=== PATIENT | male | born 1950 | race Caucasian/White ===

== ENCOUNTER 2018-12-26 06:33 | Day surgery (SDC) | payer MEDICARE, MEDICAID ==
[~2018-12-26] VITALS: Ht 170.2 cm; Wt 82.4 kg
[2018-12-26] VITALS (10 sets, daily range): BP systolic 146–165; BP diastolic 47–84
[~2018-12-26 06:33] MED LIST: ALBU18HF2 IH; AMOX500C2 PO; BUPR150T8 PO; CARI350T PO; CLON-527 PO; COR3.125T PO; DULO-31 PO; EPIN0.3P17 IM; FENO145T38 PO; INSU100V23 SQ; LISI-600 PO; MOME17SP NS; NITR4.1S2 TL; NORCO10T PO; OMEP-84 PO; PHEN118S9 PO; PIOG45TA PO; PREG75CA30 PO; PROM25TA14 PO; SIMV20TA5 PO; SUMA25TA35 PO; ZET10T PO; ZOLP10TA5 PO
[2018-12-26] MEDS ORDERED: normal saline 1,000 ML IV SCH (06:50)
[2018-12-26] MEDS ORDERED: diphenhydrAMINE 25mg capsule PO PRN (06:50)
[2018-12-26] MEDS ORDERED: ALFU10TA10 PO (07:33)
[2018-12-26] MEDS ORDERED: ATOR80TA PO (07:33)
[2018-12-26] MEDS ORDERED: LANTUS SQ (07:33)
[2018-12-26] MEDS ORDERED: LANS15CA18 PO (07:33)
[2018-12-26] MEDS ORDERED: GLUC1KIT IM (07:33)
[2018-12-26] MEDS ORDERED: DULO-31 PO (07:33)
[2018-12-26] MEDS ORDERED: ARIP2TAB37 PO (07:33)
[2018-12-26] MEDS ORDERED: proCHLORperazine 10 MG/2 ml inj ONE (07:42)
[2018-12-26] MEDS ORDERED: iohexol 350MG/ML 100ml bottle IV ONE (07:42)
[2018-12-26] MEDS ORDERED: fentaNYL/PF 50MCG/1 ML 2ML syringe ONE (07:42)
[2018-12-26] MEDS ORDERED: LIDOcaine 1% (10mg/ml)w/preservative injection 20ml MDV ONE (07:42)
[2018-12-26] MEDS ORDERED: midazolam 2 mg/2 ml injection ONE ×2 (07:42→09:22)
[2018-12-26] MEDS ORDERED: iohexol 350 MG/ML 50ML vial IV ONE (07:42)
[2018-12-26] MEDS ORDERED: diphenhydrAMINE 50 mg/ml inj ONE (08:07)
[2018-12-26] MEDS ORDERED: heparin 1,000unit/ml 10ml vial 10 ML ONE (08:39)
[2018-12-26] MEDS ORDERED: iohexol 350 MG/1 ML 200ml bottle ONE (08:40)
[2018-12-26] MEDS ORDERED: nitroGLYCERIN-Tridil 50MG/D5W 250 ML IV ONE (09:06)
[2018-12-26] MEDS ORDERED: aspirin 81mg tab.chew ONE (09:48)
[2018-12-26] MEDS ORDERED: clopidogrel 300mg tablet ONE (09:48)
[2018-12-26 10:34] LABS: EOSINOPHILS # (AUTO) 0.1 X10'3 (0-0.9); EOSINOPHILS % (AUTO) 3.3 % (0-6); HEMATOCRIT 33.2 % (42.0-52.0); HEMOGLOBIN 11.7 g/dl (14.0-17.9); LYMPHOCYTES # (AUTO) 0.9 X10'3 (1.1-4.8); MEAN CORPUSCULAR HEMOGLOBIN 30.5 PG (27.0-31.0); MEAN CORPUSCULAR HGB CONC 35.2 g/dL (33.0-36.5); MEAN CORPUSCULAR VOLUME 86.6 FL (78-98); MEAN PLATELET VOLUME 9.1 FL (7.4-10.4); MONOCYTES # (AUTO) 0.3 X10'3 (0-0.9); MONOCYTES % (AUTO) 9.8 % (2-12); NEUTROPHILS # (AUTO) 2.2 X10'3 (1.8-7.7); NEUTROPHILS % (AUTO) 60.9 % (42-75); PLATELET COUNT 156 X10'3 (140-440); RED BLOOD COUNT 3.83 X10'6 (4.70-6.10); RED CELL DISTRIBUTION WIDTH 13.4 % (11.5-14.5); WHITE BLOOD COUNT 3.6 X10'3 (4.5-11.0)
[2018-12-26 10:42] LABS: ALBUMIN 3.3 G/DL (3.4-5.0); ANION GAP 5 (8-16); BLOOD UREA NITROGEN 16 MG/DL (7-18); BUN/CREATININE RATIO 18.2 (5.4-32.0); CALCIUM 8.7 MG/DL (8.5-10.1); CHLORIDE 105 MMOL/L (99-107); CREATININE 0.88 MG/DL (0.60-1.10); GLUCOSE 134 MG/DL (70-104); MAGNESIUM 1.4 MG/DL (1.5-2.4); POTASSIUM 4.2 MMOL/L (3.5-5.1); SODIUM 136 MMOL/L (135-145); TOTAL CARBON DIOXIDE 26.2 MMOL/L (24-32); eGFR 86 ML/MIN
[2018-12-26 10:45] LABS: PROTHROMBIN TIME 12.2 SECONDS (9.0-12.0)
[2018-12-26 10:46] LABS: INR 1.2 INR
== END 2018-12-26 14:10 | disposition home or self-care (01) ==
LOC: SSTAY O 06:33
PROVIDERS: ATTEND Internal Medicine Cardiovascular Disease
DX: I25.119 Atherosclerotic heart disease of native coronary artery with unspecified angina pectoris (principal); E78.5 Hyperlipidemia, unspecified; I10 Essential (primary) hypertension; E11.9 Type 2 diabetes mellitus without complications; I25.2 Old myocardial infarction; I70.219 Atherosclerosis of native arteries of extremities with intermittent claudication, unspecified extremity; E78.00 Pure hypercholesterolemia, unspecified; G47.30 Sleep apnea, unspecified; J44.9 Chronic obstructive pulmonary disease, unspecified; Z98.890 Other specified postprocedural states; Z88.8 Allergy status to other drugs, medicaments and biological substances; Z87.891 Personal history of nicotine dependence; Z95.5 Presence of coronary angioplasty implant and graft
CPT/HCPCS: 36415; 80048; 83735; 85025; 85610; 93005; 93458; 99152; 99153; A6257; C1874; C9600; J0780; J1200; J1644; J2001; J2250; J3010; J7030; Q0163; Q9967; A4620; C1725; C1760; C1769; C1894; J3490

== ENCOUNTER → 2019-04-23 | Day surgery (SDC) | payer MEDICARE, MEDICAID ==
[~2019-04-23] MED LIST changes: +ALFU10TA10 PO; -AMOX500C2 PO; +ARIP2TAB37 PO; +ATOR80TA PO; -BUPR150T8 PO; -CARI350T PO; -CLON-527 PO; +GLUC1KIT IM; -INSU100V23 SQ; +LANS15CA18 PO; +LANTUS SQ; +LORA0.5T PO; -NORCO10T PO; -OMEP-84 PO; -PHEN118S9 PO; -PIOG45TA PO; -PREG75CA30 PO; -SIMV20TA5 PO; -SUMA25TA35 PO; -ZET10T PO; -ZOLP10TA5 PO
== END | disposition home or self-care (01) ==
LOC: RAD 09:25
PROVIDERS: ATTEND Family Medicine
DX: R11.0 Nausea (principal)
CPT/HCPCS: 78264; A9541

== ENCOUNTER 2019-05-16 03:38 | Emergency (ER) | payer MEDICARE, MEDICAID ==
[~2019-05-16] VITALS: Ht 167.6 cm; Wt 95.0 kg
[~2019-05-16 03:38] MED LIST changes: -LORA0.5T PO
[2019-05-16] MEDS ORDERED: LORA0.5T PO (03:54)
[2019-05-16 04:05] VITALS: BP 160/63
== END 2019-05-16 04:07 | disposition home or self-care (01) ==
LOC: ER 03:38
DX: F41.9 Anxiety disorder, unspecified (principal); F41.0 Panic disorder [episodic paroxysmal anxiety]; E11.9 Type 2 diabetes mellitus without complications; Z88.6 Allergy status to analgesic agent; Z88.8 Allergy status to other drugs, medicaments and biological substances; Z79.4 Long term (current) use of insulin; Z79.899 Other long term (current) drug therapy
CPT/HCPCS: 93005; 99284

== ENCOUNTER 2019-11-03 01:26 | Emergency (ER) | payer MEDICARE, MEDICAID ==
[~2019-11-03] VITALS: Ht 172.7 cm; Wt 78.3 kg
[2019-11-03 02:46] VITALS: BP 142/59
[2019-11-03 03:11] LABS: BASOPHILS % (AUTO) 0.8 % (0-1); EOSINOPHILS # (AUTO) 0.2 X10'3 (0-0.9); EOSINOPHILS % (AUTO) 5.7 % (0-6); HEMATOCRIT 32.4 % (42.0-52.0); HEMOGLOBIN 11.4 g/dl (14.0-17.9); LYMPHOCYTES # (AUTO) 0.9 X10'3 (1.1-4.8); LYMPHOCYTES % (AUTO) 21.8 % (21-51); MEAN CORPUSCULAR HEMOGLOBIN 29.8 PG (27.0-31.0); MEAN CORPUSCULAR HGB CONC 35.3 g/dL (33.0-36.5); MEAN CORPUSCULAR VOLUME 84.5 FL (78-98); MEAN PLATELET VOLUME 8.3 FL (7.4-10.4); MONOCYTES # (AUTO) 0.4 X10'3 (0-0.9); MONOCYTES % (AUTO) 9.8 % (2-12); NEUTROPHILS # (AUTO) 2.5 X10'3 (1.8-7.7); NEUTROPHILS % (AUTO) 61.9 % (42-75); PLATELET COUNT 192 X10'3 (140-440); RED BLOOD COUNT 3.83 X10'6 (4.70-6.10); RED CELL DISTRIBUTION WIDTH 13.8 % (11.5-14.5)
[2019-11-03 03:24] LABS: CLARITY,URINE CLEAR (Clear); COLOR,URINE YELLOW (Yellow); GLUCOSE, URINE NEGATIVE (Neg); KETONES,URINE NEGATIVE (Neg); LEUKOCYTE ESTERASE ,URINE NEGATIVE (Neg); NITRITES, URINE NEGATIVE (Neg); OCCULT BLOOD,URINE NEGATIVE (Neg); PH,URINE 6.5 (4.8-8.0); PROTEIN,URINE NEGATIVE (Neg); UROBILINOGEN,URINE 0.2 E.U/dL (0.2-1.0)
[2019-11-03 03:26] LABS: ALANINE AMINOTRANSFERASE 26 U/L (12-78); ALBUMIN/GLOBULIN RATIO 1.3 (1.1-1.5); ALKALINE PHOSPHATASE 45 IU/L (46-116); ANION GAP 10 (8-16); ASPARTATE AMINO TRANSFERASE 29 U/L (10-37); BILIRUBIN,TOTAL 0.7 MG/DL (0.1-1.0); BLOOD UREA NITROGEN 11 MG/DL (7-18); BUN/CREATININE RATIO 11.6 (5.4-32.0); CALCIUM 9.2 MG/DL (8.5-10.1); CHLORIDE 97 MMOL/L (99-107); CREATININE 0.95 MG/DL (0.60-1.10); GLUCOSE 111 MG/DL (70-104); LIPASE 80 U/L (73-393); POTASSIUM 4.2 MMOL/L (3.5-5.1); SODIUM 133 MMOL/L (135-145); TOTAL CARBON DIOXIDE 26.3 MMOL/L (24-32); TOTAL PROTEIN 7.2 G/DL (6.4-8.2); eGFR 78 ML/MIN
[2019-11-03 03:26] LABS: UA COLLECTION TYPE CLN CATCH MIDSTREAM
[2019-11-03] MEDS ORDERED: MAGN296S68 PO (03:37)
[2019-11-03] MEDS ORDERED: BISA10SU60 RC (03:37)
== END 2019-11-03 03:50 | disposition home or self-care (01) ==
LOC: ER 01:27
DX: K59.00 Constipation, unspecified (principal); E11.9 Type 2 diabetes mellitus without complications; F41.9 Anxiety disorder, unspecified; Z88.6 Allergy status to analgesic agent; Z88.5 Allergy status to narcotic agent; Z79.4 Long term (current) use of insulin; Z79.899 Other long term (current) drug therapy
CPT/HCPCS: 36415; 74176; 80053; 81003; 83690; 85025; 99284

== ENCOUNTER 2021-04-02 06:31 | Day surgery (SDC) | payer MEDICARE, MEDICAID ==
[~2021-04-02] VITALS: Ht 170.2 cm; Wt 81.2 kg
[2021-04-02] VITALS (10 sets, daily range): BP systolic 137–157; BP diastolic 49–67
[~2021-04-02 06:31] MED LIST changes: +BISA10SU60 RC; -LISI-600 PO; +LISI20TA28 PO; +MAGN296S68 PO
[2021-04-02] MEDS ORDERED: normal saline 1,000 ML IV SCH (07:05)
[2021-04-02] MEDS ORDERED: diphenhydrAMINE 25mg capsule PO PRN (07:05)
[2021-04-02] MEDS ORDERED: INSU100I31 (07:13)
[2021-04-02] MEDS ORDERED: FLO0.4C PO (07:13)
[2021-04-02] MEDS ORDERED: LORA-269 PO (07:13)
[2021-04-02] MEDS ORDERED: NITR0.4T51 SL (07:13)
[2021-04-02] MEDS ORDERED: ZET10T PO (07:13)
[2021-04-02] MEDS ORDERED: CREON (07:13)
[2021-04-02] MEDS ORDERED: AMLO2.5T2 PO (07:13)
[2021-04-02] MEDS ORDERED: GABA-530 PO (07:13)
[2021-04-02] MEDS ORDERED: PRUC1TAB PO (07:13)
[2021-04-02] MEDS ORDERED: NORT25CA PO (07:13)
[2021-04-02] MEDS ORDERED: CLOP75TA15 PO (07:13)
[2021-04-02] MEDS ORDERED: DOCU100C40 PO (07:13)
[2021-04-02] MEDS ORDERED: PANT40TA54 PO (07:13)
[2021-04-02] MEDS ORDERED: fenofibrate PO (07:13)
[2021-04-02 07:28] LABS: BASOPHILS % (AUTO) 1.1 % (0-1); EOSINOPHILS # (AUTO) 0.2 X10'3 (0-0.9); EOSINOPHILS % (AUTO) 4.8 % (0-6); HEMATOCRIT 35.7 % (42.0-52.0); HEMOGLOBIN 12.1 g/dl (14.0-17.9); LYMPHOCYTES # (AUTO) 0.8 X10'3 (1.1-4.8); LYMPHOCYTES % (AUTO) 18.2 % (21-51); MEAN CORPUSCULAR HEMOGLOBIN 30.2 PG (27.0-31.0); MEAN CORPUSCULAR HGB CONC 33.8 g/dL (33.0-36.5); MEAN CORPUSCULAR VOLUME 89.2 FL (78-98); MEAN PLATELET VOLUME 8.2 FL (7.4-10.4); MONOCYTES # (AUTO) 0.4 X10'3 (0-0.9); NEUTROPHILS # (AUTO) 2.9 X10'3 (1.8-7.7); NEUTROPHILS % (AUTO) 66.9 % (42-75); PLATELET COUNT 207 X10'3 (140-440); RED BLOOD COUNT 4.01 X10'6 (4.70-6.10); RED CELL DISTRIBUTION WIDTH 14.1 % (11.5-14.5); WHITE BLOOD COUNT 4.3 X10'3 (4.5-11.0)
[2021-04-02 07:51] LABS: ALBUMIN 4.1 G/DL (3.4-5.0); ANION GAP 7 (8-16); BLOOD UREA NITROGEN 14 MG/DL (7-18); BUN/CREATININE RATIO 11.9 (5.4-32.0); CALCIUM 8.8 MG/DL (8.5-10.1); CHLORIDE 103 MMOL/L (99-107); CREATININE 1.18 MG/DL (0.60-1.10); GLUCOSE 139 MG/DL (70-104); MAGNESIUM 1.6 MG/DL (1.5-2.4); SODIUM 140 MMOL/L (135-145); TOTAL CARBON DIOXIDE 29.6 MMOL/L (24-32); eGFR 61 ML/MIN
[2021-04-02] MEDS ORDERED: LIDOcaine 1% (10mg/ml)w/preservative injection 20ml MDV ONE (08:40)
[2021-04-02] MEDS ORDERED: iohexol 350 MG/ML 50ML vial IV ONE (08:40)
[2021-04-02] MEDS ORDERED: iohexol 350MG/ML 100ml bottle IV ONE ×2 (08:40→09:25)
[2021-04-02] MEDS ORDERED: midazolam 1 mg/ML 2ml injection ONE (08:40)
[2021-04-02] MEDS ORDERED: fentaNYL/PF 50MCG/1 ML 2ML syringe ONE (08:40)
[2021-04-02] MEDS ORDERED: heparin 1,000unit/ml 10ml vial 10 ML ONE (09:22)
[2021-04-02] MEDS ORDERED: aspirin 81mg tab.chew ONE (09:50)
[2021-04-02] MEDS ORDERED: clopidogrel 300mg tablet ONE (09:50)
[2021-04-02] MEDS ORDERED: acetaminophen 325mg tablet PO PRN (10:20)
[2021-04-02] MEDS ORDERED: proCHLORperazine 10 MG/2 ml inj IV PRN (10:20)
[2021-04-02] MEDS ORDERED: HYDROcodone/acetaminophen 5mg/325mg tablet PO PRN (10:20)
[2021-04-02] MEDS ORDERED: HYDROcodone/acetaminophen 10/325mg tab PO PRN (10:20)
[2021-04-02] MEDS ORDERED: ondansetron/PF 4mg/2ml inj IV PRN (10:20)
== END 2021-04-02 13:30 | disposition home or self-care (01) ==
LOC: SSTAY O 06:31
PROVIDERS: ATTEND Internal Medicine Cardiovascular Disease
DX: R94.39 Abnormal result of other cardiovascular function study (principal); I25.118 Atherosclerotic heart disease of native coronary artery with other forms of angina pectoris; I10 Essential (primary) hypertension; E78.00 Pure hypercholesterolemia, unspecified; I25.2 Old myocardial infarction; E11.43 Type 2 diabetes mellitus with diabetic autonomic (poly)neuropathy; K31.84 Gastroparesis; G47.30 Sleep apnea, unspecified; J44.9 Chronic obstructive pulmonary disease, unspecified; Z95.5 Presence of coronary angioplasty implant and graft; Z79.01 Long term (current) use of anticoagulants; Z79.82 Long term (current) use of aspirin; Z79.899 Other long term (current) drug therapy; Z98.890 Other specified postprocedural states; Z95.820 Peripheral vascular angioplasty status with implants and grafts; Z88.8 Allergy status to other drugs, medicaments and biological substances; Z87.891 Personal history of nicotine dependence
CPT/HCPCS: 36415; 80048; 82948; 83735; 85025; 85610; 93458; 99152; 99153; C1725; C1751; C1760; C1769; C1874; C1894; C9600; J1644; J2001; J2250; J3010; J7030; Q0163; Q9967; A4620; A6258

== ENCOUNTER 2021-05-21 07:00 | Day surgery (SDC) | payer MEDICARE, MEDICAID ==
[~2021-05-21] VITALS: Ht 170.2 cm; Wt 83.9 kg
[~2021-05-21 07:00] MED LIST changes: -ALBU18HF2 IH; -ALFU10TA10 PO; +AMLO2.5T2 PO; -BISA10SU60 RC; +CLOP75TA15 PO; +CREON PO; +DOCU100C40 PO; -EPIN0.3P17 IM; -FENO145T38 PO; +FLO0.4C PO; +GABA-530 PO; -GLUC1KIT IM; +INSU100I31; -LANTUS SQ; +LORA-269 PO; -MAGN296S68 PO; -MOME17SP NS; +NITR0.4T51 SL; -NITR4.1S2 TL; +NORT25CA PO; +PANT40TA54 PO; -PROM25TA14 PO; +PRUC1TAB PO; +ZET10T PO; +fenofibrate PO
[2021-05-21] MEDS ORDERED: sodium bicarbonate (8.4%) inj. 150 MEQ in dextrose 5%-water 1,000 ML IV SCH (07:25)
[2021-05-21] MEDS ORDERED: ASPI-1264 PO (07:49)
[2021-05-21 08:23] VITALS: BP 107/45
[2021-05-21] MEDS ORDERED: iohexol 350 MG/ML 50ML vial IV ONE (09:31)
[2021-05-21] MEDS ORDERED: iohexol 350MG/ML 100ml bottle IV ONE (09:32)
== END 2021-05-21 14:00 | disposition home or self-care (01) ==
LOC: SSTAY O 07:00
PROVIDERS: ATTEND Internal Medicine Cardiovascular Disease
DX: I70.213 Atherosclerosis of native arteries of extremities with intermittent claudication, bilateral legs (principal); N28.1 Cyst of kidney, acquired; N40.0 Benign prostatic hyperplasia without lower urinary tract symptoms; K57.30 Diverticulosis of large intestine without perforation or abscess without bleeding; Z90.49 Acquired absence of other specified parts of digestive tract; Z79.899 Other long term (current) drug therapy
CPT/HCPCS: 75635; 82948; Q9967

== ENCOUNTER 2021-06-07 06:49 | Day surgery (SDC) | payer MEDICARE, MEDICAID ==
[~2021-06-07] VITALS: Ht 165.1 cm; Wt 85.1 kg
[2021-06-07] VITALS (12 sets, daily range): BP systolic 133–163; BP diastolic 48–71
[~2021-06-07 06:49] MED LIST changes: -ARIP2TAB37 PO; +ASPI-1264 PO; -DOCU100C40 PO; -LANS15CA18 PO; -PRUC1TAB PO
[2021-06-07] MEDS ORDERED: diphenhydrAMINE 25mg capsule PO PRN (07:15)
[2021-06-07] MEDS ORDERED: normal saline 1,000 ML IV SCH (07:15)
[2021-06-07 08:01] LABS: BASOPHILS # (AUTO) 0.1 X10'3 (0-0.2); BASOPHILS % (AUTO) 1.2 % (0-1); EOSINOPHILS # (AUTO) 0.3 X10'3 (0-0.9); EOSINOPHILS % (AUTO) 6.4 % (0-6); HEMATOCRIT 33.6 % (42.0-52.0); HEMOGLOBIN 11.5 g/dl (14.0-17.9); LYMPHOCYTES % (AUTO) 22.9 % (21-51); MEAN CORPUSCULAR HEMOGLOBIN 30.1 PG (27.0-31.0); MEAN CORPUSCULAR HGB CONC 34.1 g/dL (33.0-36.5); MEAN CORPUSCULAR VOLUME 88.2 FL (78-98); MEAN PLATELET VOLUME 8.6 FL (7.4-10.4); MONOCYTES # (AUTO) 0.4 X10'3 (0-0.9); MONOCYTES % (AUTO) 9.8 % (2-12); NEUTROPHILS # (AUTO) 2.6 X10'3 (1.8-7.7); NEUTROPHILS % (AUTO) 59.7 % (42-75); PLATELET COUNT 201 X10'3 (140-440); RED BLOOD COUNT 3.81 X10'6 (4.70-6.10); WHITE BLOOD COUNT 4.4 X10'3 (4.5-11.0)
[2021-06-07 08:09] LABS: ALBUMIN 3.7 G/DL (3.4-5.0); ANION GAP 5 (8-16); BLOOD UREA NITROGEN 21 MG/DL (7-18); BUN/CREATININE RATIO 16.7 (5.4-32.0); CALCIUM 8.9 MG/DL (8.5-10.1); CHLORIDE 106 MMOL/L (99-107); CREATININE 1.26 MG/DL (0.60-1.10); GLUCOSE 152 MG/DL (70-104); MAGNESIUM 1.9 MG/DL (1.5-2.4); SODIUM 141 MMOL/L (135-145); TOTAL CARBON DIOXIDE 30.1 MMOL/L (24-32); eGFR 56 ML/MIN
[2021-06-07] MEDS ORDERED: ISOS30TA84 PO (08:18)
[2021-06-07] MEDS ORDERED: EPIN0.3P3 IM (08:18)
[2021-06-07] MEDS ORDERED: ALFU10TA PO (08:27)
[2021-06-07] MEDS ORDERED: DONE5TAB7 PO (08:27)
[2021-06-07] MEDS ORDERED: CYCL1DRO EACHEYE (08:27)
[2021-06-07] MEDS ORDERED: midazolam 1 mg/ML 2ml injection ONE (08:32)
[2021-06-07] MEDS ORDERED: heparin 1,000unit/ml 10ml vial 10 ML ONE (08:32)
[2021-06-07] MEDS ORDERED: fentaNYL/PF 50MCG/1 ML 2ML syringe ONE (08:32)
[2021-06-07] MEDS ORDERED: LIDOcaine 1% (10mg/ml)w/preservative injection 20ml MDV ONE (08:32)
[2021-06-07] MEDS ORDERED: iohexol 350 MG/1 ML 200ml bottle ONE (08:33)
[2021-06-07] MEDS ORDERED: iohexol 350MG/ML 100ml bottle IV ONE (10:22)
[2021-06-07] MEDS ORDERED: HYDROcodone/acetaminophen 10/325mg tab PO PRN (11:15)
[2021-06-07] MEDS ORDERED: ondansetron/PF 4mg/2ml inj IV PRN (11:15)
[2021-06-07] MEDS ORDERED: proCHLORperazine 10 MG/2 ml inj IV PRN (11:15)
[2021-06-07] MEDS ORDERED: acetaminophen 325mg tablet PO PRN (11:15)
[2021-06-07] MEDS ORDERED: HYDROcodone/acetaminophen 5mg/325mg tablet PO PRN (11:15)
[2021-06-07] MEDS ORDERED: OXAZEpam 15mg capsule PO PRN (11:15)
--- NOTE | 2021-06-07 13:46 | NUR ---
Dr Alvarado called for bleeding/oozing at right groin when femstop gradually removed. femstop pressure replaced immediately without hematoma or further bleeding. Md to floor to visualize, orders to leave in place longer until 1630 with go home time at 5. Pt unable to urinate laying flat secondary to bph. Orders to st cath, pt tolerated well.
--- NOTE | 2021-06-07 15:27 | NUR ---
Pt having back pain, new and not relieved by pain meds. Dr Alvarado made aware. No obvious further bleeding at groin site. Vascular study in progress per Dr Alvarado to r/o retroperitoneal bleed.
== END 2021-06-07 18:10 | disposition home or self-care (01) ==
LOC: SSTAY O 06:49
PROVIDERS: ATTEND Internal Medicine Cardiovascular Disease
DX: E11.51 Type 2 diabetes mellitus with diabetic peripheral angiopathy without gangrene (principal); I70.212 Atherosclerosis of native arteries of extremities with intermittent claudication, left leg; I25.10 Atherosclerotic heart disease of native coronary artery without angina pectoris; I25.2 Old myocardial infarction; E11.43 Type 2 diabetes mellitus with diabetic autonomic (poly)neuropathy; K31.84 Gastroparesis; J44.9 Chronic obstructive pulmonary disease, unspecified; G47.30 Sleep apnea, unspecified; Z98.890 Other specified postprocedural states; Z79.899 Other long term (current) drug therapy; Z79.82 Long term (current) use of aspirin; Z95.5 Presence of coronary angioplasty implant and graft; Z90.49 Acquired absence of other specified parts of digestive tract; Z87.891 Personal history of nicotine dependence; Z88.8 Allergy status to other drugs, medicaments and biological substances
CPT/HCPCS: 36415; 37221; 75716; 80048; 83735; 85025; 85610; 93005; 93926; 99152; 99153; C1725; C1760; C1769; C1876; C1894; J1644; J2001; J2250; J3010; J7030; Q0163; Q9967; 36140; 36246; A4620; A6258

== ENCOUNTER 2022-04-29 22:06 | Emergency (ER) | payer MEDICARE, MEDICAID ==
[~2022-04-29] VITALS: Ht 170.2 cm; Wt 66.0 kg
[~2022-04-29 22:06] MED LIST changes: +ALFU10TA PO; +CYCL1DRO EACHEYE; +DONE5TAB7 PO; +EPIN0.3P3 IM; +ISOS30TA84 PO
[2022-04-29] MEDS ORDERED: ondansetron/PF 4mg/2ml inj IV ONE (22:40)
[2022-04-29] MEDS ORDERED: normal saline 1000ML IV soln IVB ONE (22:40)
[2022-04-29 23:17] LABS: BASOPHILS # (AUTO) 0.1 X10'3 (0-0.2); BASOPHILS % (AUTO) 1.4 % (0-1); EOSINOPHILS # (AUTO) 0.1 X10'3 (0-0.9); EOSINOPHILS % (AUTO) 2.3 % (0-6); HEMATOCRIT 33.9 % (42.0-52.0); HEMOGLOBIN 11.6 g/dl (14.0-17.9); LYMPHOCYTES # (AUTO) 1.1 X10'3 (1.1-4.8); LYMPHOCYTES % (AUTO) 22.7 % (21-51); MEAN CORPUSCULAR HEMOGLOBIN 29.5 PG (27.0-31.0); MEAN CORPUSCULAR HGB CONC 34.4 g/dL (33.0-36.5); MEAN CORPUSCULAR VOLUME 85.7 FL (78-98); MEAN PLATELET VOLUME 8.9 FL (7.4-10.4); MONOCYTES # (AUTO) 0.5 X10'3 (0-0.9); MONOCYTES % (AUTO) 10.8 % (2-12); NEUTROPHILS # (AUTO) 3.2 X10'3 (1.8-7.7); NEUTROPHILS % (AUTO) 62.8 % (42-75); PLATELET COUNT 284 X10'3 (140-440); RED BLOOD COUNT 3.95 X10'6 (4.70-6.10); RED CELL DISTRIBUTION WIDTH 15.1 % (11.5-14.5)
[2022-04-29 23:32] LABS: ALANINE AMINOTRANSFERASE 17 U/L (12-78); ALBUMIN 3.1 G/DL (3.4-5.0); ALKALINE PHOSPHATASE 59 IU/L (46-116); ANION GAP 10 (8-16); ASPARTATE AMINO TRANSFERASE 18 U/L (10-37); BILIRUBIN,TOTAL 0.5 MG/DL (0.1-1.0); BLOOD UREA NITROGEN 16 MG/DL (7-18); BUN/CREATININE RATIO 14.7 (5.4-32.0); CALCIUM 8.5 MG/DL (8.5-10.1); CHLORIDE 99 MMOL/L (99-107); CREATININE 1.09 MG/DL (0.60-1.10); GLUCOSE 123 MG/DL (70-104); LIPASE 415 U/L (73-393); MAGNESIUM 1.4 MG/DL (1.5-2.4); POTASSIUM 4.2 MMOL/L (3.5-5.1); SODIUM 136 MMOL/L (135-145); TOTAL CARBON DIOXIDE 26.8 MMOL/L (24-32); TOTAL PROTEIN 6.2 G/DL (6.4-8.2); eGFR 66 ML/MIN
[2022-04-30] MEDS ORDERED: iohexol 350MG/ML 100ml bottle IV ONE ×2 (00:08→00:10)
[2022-04-30 01:13] LABS: CLARITY,URINE CLEAR (Clear); COLOR,URINE YELLOW (Yellow); GLUCOSE, URINE NEGATIVE (Neg); KETONES,URINE 15 mg/dl (Neg); LEUKOCYTE ESTERASE ,URINE TRACE (Neg); NITRITES, URINE NEGATIVE (Neg); OCCULT BLOOD,URINE NEGATIVE (Neg); PROTEIN,URINE NEGATIVE (Neg); UROBILINOGEN,URINE 0.2 E.U/dL (0.2-1.0)
[2022-04-30 01:20] LABS: UA COLLECTION TYPE CLN CATCH MIDSTREAM
[2022-04-30 01:23] LABS: BACTERIA,URINE NONE SEEN /HPF (Neg); MUCUS STRANDS NONE SEEN /LPF (Neg); RBC,URINE 0-2 /HPF (0-2); SQUAMOUS EPITHELIAL CELL,UR NONE SEEN /LPF (FEW); WBC,URINE 0-4 /HPF (0-4)
[2022-04-30] MEDS ORDERED: LORazepam 1 MG tablet PO ONE (02:05)
[2022-04-30 04:00] VITALS: BP 138/70
== END 2022-04-30 05:50 | disposition home or self-care (01) ==
LOC: ER 22:06
DX: E11.43 Type 2 diabetes mellitus with diabetic autonomic (poly)neuropathy (principal); K31.84 Gastroparesis; R10.84 Generalized abdominal pain; F41.9 Anxiety disorder, unspecified; Z88.8 Allergy status to other drugs, medicaments and biological substances; Z79.82 Long term (current) use of aspirin; Z79.899 Other long term (current) drug therapy
CPT/HCPCS: 36415; 74177; 80053; 81001; 83690; 83735; 85025; 87088; 96374; 99285; J2405; J3490; J7030; Q9967

== ENCOUNTER 2023-05-16 10:47 | Emergency (ER) | payer MEDICARE, MEDICAID ==
[~2023-05-16] VITALS: Ht 170.2 cm; Wt 90.0 kg
[2023-05-16 10:56] VITALS: BP 124/39; PULSE 56; RESP 18; TEMP 97.6; O2SAT 95
== END 2023-05-16 12:24 | disposition left against medical advice (07) ==
LOC: ER 10:48
DX: M54.59 Other low back pain (principal); Z53.21 Procedure and treatment not carried out due to patient leaving prior to being seen by health care provider
CPT/HCPCS: 99281

== ENCOUNTER 2024-03-19 18:22 | Emergency (ER) | payer MEDICARE, OTHER ==
[~2024-03-19] VITALS: Ht 170.2 cm; Wt 69.5 kg
[~2024-03-19 18:22] MED LIST changes: +EZET10TA7 PO; -ZET10T PO
[2024-03-19 18:27] VITALS: TEMP 98.8
[2024-03-19 18:50] LABS: EOSINOPHILS # (AUTO) 0.2 X10'3 (0-0.9); LYMPHOCYTES # (AUTO) 0.9 X10'3 (1.1-4.8); LYMPHOCYTES % (AUTO) 16.4 % (21-51); MONOCYTES # (AUTO) 0.4 X10'3 (0-0.9); RED CELL DISTRIBUTION WIDTH 13.5 % (11.5-14.5)
[2024-03-19 18:53] LABS: BASOPHILS % (AUTO) 0.9 % (0-1); EOSINOPHILS % (AUTO) 3.2 % (0-6); HEMATOCRIT 35.1 % (42.0-52.0); MEAN CORPUSCULAR HEMOGLOBIN 30.4 PG (27.0-31.0); MEAN CORPUSCULAR HGB CONC 34.1 g/dL (33.0-36.5); MEAN CORPUSCULAR VOLUME 89.1 FL (78-98); MEAN PLATELET VOLUME 8.8 FL (7.4-10.4); NEUTROPHILS # (AUTO) 4.1 X10'3 (1.8-7.7); NEUTROPHILS % (AUTO) 72.5 % (42-75); PLATELET COUNT 174 X10'3 (140-440); RED BLOOD COUNT 3.94 X10'6 (4.70-6.10); WHITE BLOOD COUNT 5.7 X10'3 (4.5-11.0)
[2024-03-19 21:05] LABS: ALBUMIN 3.7 G/DL (3.4-5.0); ANION GAP 12 (8-16); BLOOD UREA NITROGEN 23 MG/DL (7-18); BUN/CREATININE RATIO 17.8 (10.0-20.0); CALCIUM 9.4 MG/DL (8.5-10.1); CHLORIDE 106 MMOL/L (99-107); CREATININE 1.29 MG/DL (0.60-1.10); GLUCOSE 74 MG/DL (70-104); POTASSIUM 4.2 MMOL/L (3.5-5.1); PRO BRAIN NATRIURETIC PEPTIDE 1466 PG/ML (0-450); SODIUM 142 MMOL/L (135-145); eCRCL 46 ML/MIN; eGFR 54 ML/MIN
[2024-03-19] MEDS ORDERED: PROC-8 PO (21:33)
[2024-03-19] MEDS: proCHLORperazine 10 MG/2 ml inj IV ONE (21:40)
[2024-03-19 21:56] VITALS: BP 163/61; PULSE 57; RESP 17; O2SAT 97
== END 2024-03-19 21:50 | disposition home or self-care (01) ==
LOC: ER 18:22
DX: K31.84 Gastroparesis (principal); R53.1 Weakness; E11.9 Type 2 diabetes mellitus without complications; Z88.5 Allergy status to narcotic agent; Z88.6 Allergy status to analgesic agent
CPT/HCPCS: 36415; 71045; 80048; 83880; 84145; 84484; 85025; 93005; 96374; 99285; J0780; J7030

== ENCOUNTER 2024-05-04 20:54 | Emergency (ER) | payer MEDICARE, MEDICAID ==
[~2024-05-04] VITALS: Ht 170.2 cm; Wt 67.6 kg
[~2024-05-04 20:54] MED LIST changes: +PROC-8 PO
[2024-05-04] MEDS: normal saline 1000ML IV soln IVB ONE (23:56)
[2024-05-05] MEDS: ondansetron/PF 4mg/2ml inj IV ONE ×2 (00:32→02:14)
[2024-05-05 00:36] LABS: BASOPHILS % (AUTO) 0.7 % (0-1); EOSINOPHILS # (AUTO) 0.2 X10'3 (0-0.9); EOSINOPHILS % (AUTO) 3.2 % (0-6); HEMATOCRIT 34.2 % (42.0-52.0); HEMOGLOBIN 11.7 g/dl (14.0-17.9); LYMPHOCYTES # (AUTO) 1.3 X10'3 (1.1-4.8); LYMPHOCYTES % (AUTO) 20.1 % (21-51); MEAN CORPUSCULAR HEMOGLOBIN 30.4 PG (27.0-31.0); MEAN CORPUSCULAR HGB CONC 34.3 g/dL (33.0-36.5); MEAN CORPUSCULAR VOLUME 88.5 FL (78-98); MEAN PLATELET VOLUME 8.4 FL (7.4-10.4); MONOCYTES # (AUTO) 0.7 X10'3 (0-0.9); MONOCYTES % (AUTO) 10.3 % (2-12); NEUTROPHILS # (AUTO) 4.3 X10'3 (1.8-7.7); NEUTROPHILS % (AUTO) 65.7 % (42-75); PLATELET COUNT 250 X10'3 (140-440); RED BLOOD COUNT 3.86 X10'6 (4.70-6.10); WHITE BLOOD COUNT 6.6 X10'3 (4.5-11.0)
[2024-05-05 00:39] LABS: ALANINE AMINOTRANSFERASE 32 U/L (12-78); ALBUMIN 4.1 G/DL (3.4-5.0); ALBUMIN/GLOBULIN RATIO 1.1 (1.1-1.5); ALKALINE PHOSPHATASE 57 IU/L (46-116); ANION GAP 10 (8-16); ASPARTATE AMINO TRANSFERASE 32 U/L (10-37); BILIRUBIN,TOTAL 0.7 MG/DL (0.1-1.0); BLOOD UREA NITROGEN 29 MG/DL (7-18); BUN/CREATININE RATIO 18.8 (10.0-20.0); CALCIUM 9.7 MG/DL (8.5-10.1); CHLORIDE 97 MMOL/L (99-107); CREATININE 1.54 MG/DL (0.60-1.10); GLUCOSE 135 MG/DL (70-104); LIPASE 176 U/L (16-77); POTASSIUM 3.6 MMOL/L (3.5-5.1); SODIUM 134 MMOL/L (135-145); TOTAL CARBON DIOXIDE 27.4 MMOL/L (24-32); TOTAL PROTEIN 7.9 G/DL (6.4-8.2); eCRCL 39 ML/MIN; eGFR 44 ML/MIN
[2024-05-05] MEDS: normal saline 1000ML IV soln IVB ONE (01:27)
[2024-05-05] MEDS ORDERED: ONDA-243 PO (02:06)
[2024-05-05] MEDS ORDERED: ZOLP5TAB8 PO (02:14)
[2024-05-05] MEDS: QUEtiapine 25mg tablet PO ONE (02:28)
[2024-05-05 02:32] VITALS: BP 145/63; PULSE 97; RESP 16; TEMP 97.6; O2SAT 98
== END 2024-05-05 02:32 | disposition home or self-care (01) ==
LOC: ER 20:55
DX: E86.0 Dehydration (principal); R10.84 Generalized abdominal pain; I25.10 Atherosclerotic heart disease of native coronary artery without angina pectoris; E11.9 Type 2 diabetes mellitus without complications; F41.9 Anxiety disorder, unspecified; Z88.8 Allergy status to other drugs, medicaments and biological substances; Z79.899 Other long term (current) drug therapy; Z79.82 Long term (current) use of aspirin
CPT/HCPCS: 36415; 80053; 83690; 85025; 96361; 96374; 96376; 99284; J2405; J7030

== ENCOUNTER 2024-05-07 11:55 | Emergency (ER) | payer MEDICARE, MEDICAID ==
[~2024-05-07] VITALS: Ht 167.6 cm; Wt 65.9 kg
[~2024-05-07 11:55] MED LIST changes: +ONDA-243 PO; +ZOLP5TAB8 PO
[2024-05-07 12:54] LABS: BILIRUBIN,URINE NEGATIVE (Neg); CLARITY,URINE SLIGHTLY CLOUDY (Clear); COLOR,URINE YELLOW (Yellow); GLUCOSE, URINE NEGATIVE (Neg); KETONES,URINE TRACE mg/dl (Neg); LEUKOCYTE ESTERASE ,URINE NEGATIVE (Neg); NITRITES, URINE NEGATIVE (Neg); OCCULT BLOOD,URINE NEGATIVE (Neg); PROTEIN,URINE TRACE mg/dl (Neg); UROBILINOGEN,URINE 0.2 E.U/dL (0.2-1.0)
[2024-05-07 12:56] LABS: URINE AMPHETAMINE SCREEN NEGATIVE (Neg); URINE BARBITUATE SCREEN NEGATIVE (Neg); URINE BENZODIAZEPINES SCREEN POSITIVE (Neg); URINE CANNABINOID SCREEN POSITIVE (Neg); URINE COCAINE SCREEN NEGATIVE (Neg); URINE METHADONE SCREEN NEGATIVE (Neg); URINE OPIATE SCREEN NEGATIVE (Neg); URINE PHENCYCLIDINE SCREEN NEGATIVE (Neg)
[2024-05-07 13:17] LABS: BASOPHILS % (AUTO) 0.5 % (0-1); EOSINOPHILS # (AUTO) 0.1 X10'3 (0-0.9); EOSINOPHILS % (AUTO) 2.7 % (0-6); HEMATOCRIT 31.3 % (42.0-52.0); HEMOGLOBIN 10.7 g/dl (14.0-17.9); LYMPHOCYTES # (AUTO) 0.6 X10'3 (1.1-4.8); LYMPHOCYTES % (AUTO) 13.2 % (21-51); MEAN CORPUSCULAR HEMOGLOBIN 30.6 PG (27.0-31.0); MEAN CORPUSCULAR HGB CONC 34.2 g/dL (33.0-36.5); MEAN CORPUSCULAR VOLUME 89.5 FL (78-98); MEAN PLATELET VOLUME 8.3 FL (7.4-10.4); MONOCYTES # (AUTO) 0.5 X10'3 (0-0.9); MONOCYTES % (AUTO) 10.7 % (2-12); NEUTROPHILS # (AUTO) 3.2 X10'3 (1.8-7.7); NEUTROPHILS % (AUTO) 72.9 % (42-75); PLATELET COUNT 230 X10'3 (140-440); WHITE BLOOD COUNT 4.4 X10'3 (4.5-11.0)
[2024-05-07 13:37] LABS: ALBUMIN 3.4 G/DL (3.4-5.0); ANION GAP 5 (8-16); BLOOD UREA NITROGEN 14 MG/DL (7-18); BUN/CREATININE RATIO 10.6 (10.0-20.0); CHLORIDE 105 MMOL/L (99-107); CREATININE 1.32 MG/DL (0.60-1.10); GLUCOSE 158 MG/DL (70-104); POTASSIUM 4.1 MMOL/L (3.5-5.1); SODIUM 138 MMOL/L (135-145); THYROID STIMULATING HORMONE 1.22 ulU/ml (0.34-4.50); TOTAL CARBON DIOXIDE 28.1 MMOL/L (24-32); eCRCL 44 ML/MIN; eGFR 53 ML/MIN
[2024-05-07 13:44] LABS: UA COLLECTION TYPE CLN CATCH MIDSTREAM
[2024-05-07 13:44] LABS: ETHANOL < 10 MG/DL (<10)
[2024-05-07 13:47] LABS: BACTERIA,URINE 1+ /HPF (Neg); WBC,URINE 0-4 /HPF (0-4)
[2024-05-07 13:48] LABS: SQUAMOUS EPITHELIAL CELL,UR NONE SEEN /LPF (FEW)
[2024-05-07 13:50] LABS: RBC,URINE 0-2 /HPF (0-2)
[2024-05-07 13:51] LABS: AMORPHOUS PHOSPHATES 3+; HYALINE CASTS 0-3 /LPF (NEGATIVE)
[2024-05-07] MEDS ORDERED: FERR-106 PO (16:19)
[2024-05-07] MEDS ORDERED: SERT-434 PO (16:19)
[2024-05-07] MEDS ORDERED: ZOLP5TAB8 PO (21:46)
[2024-05-07] MEDS ORDERED: ONDA-243 PO (22:51)
[2024-05-07] MEDS: zolpidem 5mg tablet PO ONE (23:50)
[2024-05-08] MEDS: LORazepam 1 MG tablet PO ONE (03:46)
[2024-05-08] MEDS: pantoprazole 40mg Tablet.DR PO SCH (07:59)
[2024-05-08] MEDS: sertraline 50mg tablet PO SCH (08:00)
[2024-05-08] MEDS: ALFUZOSIN HCL 10 MG PO SCH (08:00)
[2024-05-08] MEDS: duloxetine 30mg CAPSULE.DR PO SCH (08:00)
[2024-05-08] MEDS: LORazepam 1 MG tablet PO SCH (08:00)
[2024-05-08] MEDS: isosorbide mononitrate 30mg tab.SR.24H PO SCH (08:01)
[2024-05-08] MEDS: clopidogrel 75mg tablet PO SCH (08:01)
[2024-05-08] MEDS: carvedilol 6.25mg tablet PO SCH (08:01)
[2024-05-08] MEDS: donepezil 5mg tablet PO SCH (08:01)
[2024-05-08] MEDS ORDERED: alfuzosin 10MG TAB.SR.24H PO SCH ×3 (08:53→08:58)
[2024-05-08 13:05] VITALS: BP 114/60; PULSE 80; RESP 16; TEMP 98.5; O2SAT 98
== END 2024-05-08 13:07 | disposition home or self-care (01) ==
LOC: ER 11:55
DX: R45.851 Suicidal ideations (principal); Z20.822 Contact with and (suspected) exposure to COVID-19; I25.10 Atherosclerotic heart disease of native coronary artery without angina pectoris; E11.9 Type 2 diabetes mellitus without complications; F41.9 Anxiety disorder, unspecified; Z88.8 Allergy status to other drugs, medicaments and biological substances; Z88.5 Allergy status to narcotic agent; Z88.6 Allergy status to analgesic agent; Z79.899 Other long term (current) drug therapy
CPT/HCPCS: 36415; 80048; 80305; 81001; 82948; 84443; 85025; 87811; 99285; G0480; 80320

== ENCOUNTER 2024-08-31 23:02 | Emergency (ER) | payer MEDICARE, MEDICAID ==
[~2024-08-31] VITALS: Ht 182.9 cm; Wt 89.9 kg
[~2024-08-31 23:02] MED LIST changes: -AMLO2.5T2 PO; -ASPI-1264 PO; -ATOR80TA PO; -CREON PO; -CYCL1DRO EACHEYE; -EPIN0.3P3 IM; -EZET10TA7 PO; -FLO0.4C PO; -GABA-530 PO; -INSU100I31; -LISI20TA28 PO; -NITR0.4T51 SL; -NORT25CA PO; -ONDA-243 PO; -PROC-8 PO; +SERT-434 PO; -ZOLP5TAB8 PO; -fenofibrate PO
[2024-09-01 00:18] LABS: BASOPHILS % (AUTO) 0.5 % (0-1); EOSINOPHILS # (AUTO) 0.1 X10'3 (0-0.9); EOSINOPHILS % (AUTO) 1.5 % (0-6); LYMPHOCYTES # (AUTO) 0.7 X10'3 (1.1-4.8); LYMPHOCYTES % (AUTO) 16.5 % (21-51); MEAN CORPUSCULAR HEMOGLOBIN 30.7 PG (27.0-31.0); MEAN CORPUSCULAR HGB CONC 34.4 g/dL (33.0-36.5); MEAN CORPUSCULAR VOLUME 89.4 FL (78-98); MEAN PLATELET VOLUME 7.9 FL (7.4-10.4); MONOCYTES # (AUTO) 0.5 X10'3 (0-0.9); MONOCYTES % (AUTO) 11.2 % (2-12); NEUTROPHILS # (AUTO) 3.2 X10'3 (1.8-7.7); NEUTROPHILS % (AUTO) 70.3 % (42-75); PLATELET COUNT 216 X10'3 (140-440); RED BLOOD COUNT 3.59 X10'6 (4.70-6.10); RED CELL DISTRIBUTION WIDTH 13.9 % (11.5-14.5); WHITE BLOOD COUNT 4.5 X10'3 (4.5-11.0)
[2024-09-01 00:39] LABS: ALBUMIN 3.6 G/DL (3.4-5.0); ANION GAP 9 (8-16); BLOOD UREA NITROGEN 8 MG/DL (7-18); BUN/CREATININE RATIO 5.5 (10.0-20.0); CHLORIDE 107 MMOL/L (99-107); CREATININE 1.45 MG/DL (0.60-1.10); ETHANOL < 10 MG/DL (<10); GLUCOSE 96 MG/DL (70-104); POTASSIUM 3.7 MMOL/L (3.5-5.1); SODIUM 142 MMOL/L (135-145); THYROID STIMULATING HORMONE 2.07 ulU/ml (0.34-4.50); TOTAL CARBON DIOXIDE 25.7 MMOL/L (24-32); eCRCL 48 ML/MIN; eGFR 47 ML/MIN
[2024-09-01 00:57] LABS: BILIRUBIN,URINE NEGATIVE (Neg); CLARITY,URINE CLEAR (Clear); COLOR,URINE YELLOW (Yellow); GLUCOSE, URINE NEGATIVE (Neg); KETONES,URINE NEGATIVE (Neg); LEUKOCYTE ESTERASE ,URINE NEGATIVE (Neg); NITRITES, URINE NEGATIVE (Neg); OCCULT BLOOD,URINE NEGATIVE (Neg); PH,URINE 8.5 (4.8-8.0); PROTEIN,URINE NEGATIVE (Neg); UROBILINOGEN,URINE 0.2 E.U/dL (0.2-1.0)
[2024-09-01] MEDS: LORazepam 2 mg/ml vial IV ONE (01:01)
[2024-09-01 01:04] LABS: UA COLLECTION TYPE VOIDED
[2024-09-01 01:23] LABS: URINE AMPHETAMINE SCREEN NEGATIVE (Neg); URINE BARBITUATE SCREEN NEGATIVE (Neg); URINE BENZODIAZEPINES SCREEN NEGATIVE (Neg); URINE CANNABINOID SCREEN POSITIVE (Neg); URINE COCAINE SCREEN NEGATIVE (Neg); URINE METHADONE SCREEN NEGATIVE (Neg); URINE OPIATE SCREEN NEGATIVE (Neg); URINE PHENCYCLIDINE SCREEN NEGATIVE (Neg)
[2024-09-01] MEDS ORDERED: WATER FOR INJECTION,STERILE 71 ML in dextrose 70%-water 179 ML IV SCH (02:30)
[2024-09-01] MEDS: dextrose 50%-water 50ml dispensing syringe IV ONE (02:43)
[2024-09-01] MEDS: dextrose 5%-normal saline 1,000 ML IV SCH (05:59)
[2024-09-01 11:36] LABS: SALICYLATE 0.3 MG/DL (4.0-20.0)
[2024-09-01 11:37] LABS: ACETAMINOPHEN < 2.0 UG/ML (10-30)
[2024-09-01] MEDS ORDERED: DONE10TA19 PO (17:16)
[2024-09-01] MEDS ORDERED: FERR325T28 PO (17:16)
[2024-09-01] MEDS ORDERED: DESV50TA20 PO (17:16)
[2024-09-01] MEDS ORDERED: ONDA-245 PO (17:16)
[2024-09-01] MEDS ORDERED: PRUC1TAB PO (17:16)
[2024-09-01] MEDS ORDERED: LORA-268 PO (17:16)
[2024-09-01] MEDS ORDERED: FENO160T PO (17:16)
[2024-09-01] MEDS ORDERED: HYDR-3927 PO (17:16)
[2024-09-01] MEDS ORDERED: UMEC62.5 PO (20:04)
[2024-09-01] MEDS ORDERED: DOCU-391 PO (20:13)
[2024-09-01] MEDS ORDERED: QUET25TA36 PO (20:22)
[2024-09-01 21:34] VITALS: PULSE 59; O2SAT 100
[2024-09-01] MEDS: proCHLORperazine 10mg tablet PO PRN (21:34)
[2024-09-01] MEDS: QUEtiapine 25mg tablet PO SCH (21:34)
[2024-09-01] MEDS: hydrOXYzine 25 MG tablet PO SCH (21:34)
[2024-09-01] MEDS: donepezil 5mg tablet PO SCH (21:35)
[2024-09-01] MEDS: LORazepam 0.5 MG tablet PO PRN (22:48)
[2024-09-01] MEDS: QUEtiapine 25mg tablet PO ONE (23:56)
[2024-09-02] MEDS: ipratropium 0.5 MG/2.5ML nebule IH SCH (03:00)
[2024-09-02] MEDS: DESVENLAFAXINE SUCCINATE 50 MG PO SCH (08:00)
[2024-09-02] MEDS: PRUCALOPRIDE SUCCINATE 1 MG PO SCH (08:00)
[2024-09-02] MEDS: NUT.TX.GLUC.INTOLER,LAC-FR,SOY (GLUCERNA) 237 ML PO SCH (08:13)
[2024-09-02] MEDS: ferrous sulfate 325mg tablet PO SCH (08:15)
[2024-09-02] MEDS: isosorbide mononitrate 30mg tab.SR.24H PO SCH (08:15)
[2024-09-02] MEDS: clopidogrel 75mg tablet PO SCH (08:15)
[2024-09-02] MEDS: fenofibrate 145mg tablet PO SCH (08:15)
[2024-09-02] MEDS: ondansetron 4mg rapidly disintigrating tab PO PRN (08:21)
[2024-09-02 09:54] VITALS: PULSE 66; RESP 16; O2SAT 96
[2024-09-02 10:03] VITALS: PULSE 72; RESP 16
[2024-09-02] MEDS: QUEtiapine 25mg tablet PO ONE (23:59)
[2024-09-03 19:36] VITALS: PULSE 68; RESP 16; O2SAT 97
[2024-09-03 19:44] VITALS: PULSE 80; RESP 16
[2024-09-03] MEDS: quetiapine 100mg tablet PO SCH (20:18)
[2024-09-04] VITALS (8 sets, daily range): PULSE 60–77; RESP 16–20; O2SAT 98–100
[2024-09-04] MEDS: loperamide 2mg capsule PO ONE (00:16)
[2024-09-04] MEDS: haloperidol lactate 5mg/ml inj IM ONE (14:06)
[2024-09-05] VITALS (7 sets, daily range): PULSE 49–95; RESP 16–18; TEMP 98; O2SAT 98
[2024-09-06 09:28] VITALS: PULSE 68; RESP 16; O2SAT 98
[2024-09-06 09:33] VITALS: PULSE 56; RESP 16
[2024-09-06 15:44] VITALS: BP 150/64
[2024-09-06 16:53] VITALS: PULSE 60; RESP 20; O2SAT 98
[2024-09-06 16:58] VITALS: PULSE 64; RESP 20
== END 2024-09-06 18:35 | disposition home or self-care (01) ==
LOC: ER 23:02 → EEVIPCON 23:02 → ER 09-06 18:35
DX: T38.3X2A Poisoning by insulin and oral hypoglycemic [antidiabetic] drugs, intentional self-harm, initial encounter (principal); R45.851 Suicidal ideations; S09.90XA Unspecified injury of head, initial encounter; Z20.822 Contact with and (suspected) exposure to COVID-19; S00.81XA Abrasion of other part of head, initial encounter; I25.10 Atherosclerotic heart disease of native coronary artery without angina pectoris; F41.9 Anxiety disorder, unspecified; E11.9 Type 2 diabetes mellitus without complications; Z88.5 Allergy status to narcotic agent; Z88.6 Allergy status to analgesic agent; Z88.8 Allergy status to other drugs, medicaments and biological substances; Z79.899 Other long term (current) drug therapy; Y92.89 Other specified places as the place of occurrence of the external cause; X58.XXXA Exposure to other specified factors, initial encounter; Y93.89 Activity, other specified; Y99.8 Other external cause status
CPT/HCPCS: 36415; 70450; 80048; 80305; 80329; 81003; 82948; 84443; 85025; 87811; 94640; 96361; 96372; 96374; 96375; 99285; G0480; J2060; J3490; J7042; Q0164; Q0177; 80320; 94760

== ENCOUNTER 2024-12-20 11:32 | Inpatient (IN) | payer MEDICARE, MEDICAID ==
[~2024-12-20] VITALS: Ht 170.2 cm; Wt 72.0 kg
[~2024-12-20 11:32] MED LIST changes: -ALFU10TA PO; -COR3.125T PO; +DESV50TA20 PO; +DOCU-391 PO; +DONE10TA19 PO; -DONE5TAB7 PO; -DULO-31 PO; +FENO160T PO; +FERR325T28 PO; +HYDR-3927 PO; +LORA-268 PO; -LORA-269 PO; +ONDA-245 PO; -PANT40TA54 PO; +PRUC1TAB PO; +QUET25TA36 PO; -SERT-434 PO; +UMEC62.5 PO
[2024-12-20 12:10] LABS: BASOPHILS % (AUTO) 0.7 % (0-1); EOSINOPHILS # (AUTO) 0.1 X10'3 (0-0.9); EOSINOPHILS % (AUTO) 2.4 % (0-6); HEMATOCRIT 35.7 % (42.0-52.0); HEMOGLOBIN 12.2 g/dl (14.0-17.9); LYMPHOCYTES % (AUTO) 21.1 % (21-51); MEAN CORPUSCULAR HEMOGLOBIN 31.6 PG (27.0-31.0); MEAN CORPUSCULAR HGB CONC 34.1 g/dL (33.0-36.5); MEAN CORPUSCULAR VOLUME 92.6 FL (78-98); MEAN PLATELET VOLUME 8.3 FL (7.4-10.4); MONOCYTES # (AUTO) 0.4 X10'3 (0-0.9); MONOCYTES % (AUTO) 8.6 % (2-12); NEUTROPHILS # (AUTO) 3.1 X10'3 (1.8-7.7); NEUTROPHILS % (AUTO) 67.2 % (42-75); PLATELET COUNT 180 X10'3 (140-440); RED BLOOD COUNT 3.86 X10'6 (4.70-6.10); RED CELL DISTRIBUTION WIDTH 13.8 % (11.5-14.5); WHITE BLOOD COUNT 4.6 X10'3 (4.5-11.0)
[2024-12-20 12:21] LABS: ALANINE AMINOTRANSFERASE 21 U/L (12-78); ALBUMIN 3.4 G/DL (3.4-5.0); ALBUMIN/GLOBULIN RATIO 1.1 (1.1-1.5); ALKALINE PHOSPHATASE 90 IU/L (46-116); ANION GAP 3 (8-16); ASPARTATE AMINO TRANSFERASE 15 U/L (10-37); BILIRUBIN,TOTAL 0.3 MG/DL (0.1-1.0); BLOOD UREA NITROGEN 14 MG/DL (7-18); BUN/CREATININE RATIO 14.6 (10.0-20.0); CALCIUM 8.9 MG/DL (8.5-10.1); CHLORIDE 104 MMOL/L (99-107); CREATININE 0.96 MG/DL (0.60-1.10); GLUCOSE 161 MG/DL (70-104); POTASSIUM 4.3 MMOL/L (3.5-5.1); SODIUM 139 MMOL/L (135-145); TOTAL CARBON DIOXIDE 32.1 MMOL/L (24-32); TOTAL PROTEIN 6.4 G/DL (6.4-8.2); eCRCL 61 ML/MIN; eGFR 76 ML/MIN
[2024-12-20 12:29] LABS: PRO BRAIN NATRIURETIC PEPTIDE 1156 PG/ML (0-450)
[2024-12-20] MEDS ORDERED: magnesium sulf-water 4G/100mL 100 ML IV PRN (14:05)
[2024-12-20] MEDS ORDERED: ondansetron/PF 4mg/2ml inj IV PRN (14:05)
[2024-12-20] MEDS ORDERED: mag hydrox/Alum hydrox/simeth 30ml oral suspension PO PRN (14:05)
[2024-12-20] MEDS ORDERED: acetaminophen 325mg tablet PO PRN (14:05)
[2024-12-20] MEDS ORDERED: magnesium sulf-water 2g/50mL 50 ML IV PRN (14:05)
[2024-12-20] MEDS ORDERED: potassium Cl 40MEQ/1/2NS 520ml 520 ML IV PRN (14:05)
[2024-12-20] MEDS ORDERED: magnesium hydroxide 30ml (MOM) UD suspension PO PRN (14:05)
[2024-12-20] MEDS ORDERED: potassium Cl 20 mEq SR tablet PO PRN ×2 (14:05)
[2024-12-20] MEDS ORDERED: nitroGLYCERIN 0.4mg SUBLingual tab SL PRN (14:35)
[2024-12-20] MEDS ORDERED: aminophylline 500mg/20ml vial IV PRN (14:35)
[2024-12-20] MEDS ORDERED: metoprolol tartrate 1mg/ml inj IV PRN (14:35)
[2024-12-20 15:08] LABS: HEMOGLOBIN A1C 6.3 % (4.5-6.2)
[2024-12-20 16:27] LABS: BILIRUBIN,URINE NEGATIVE (Neg); CLARITY,URINE CLEAR (Clear); COLOR,URINE YELLOW (Yellow); GLUCOSE, URINE NEGATIVE (Neg); KETONES,URINE NEGATIVE (Neg); LEUKOCYTE ESTERASE ,URINE NEGATIVE (Neg); NITRITES, URINE NEGATIVE (Neg); OCCULT BLOOD,URINE NEGATIVE (Neg); PROTEIN,URINE NEGATIVE (Neg); UROBILINOGEN,URINE 0.2 E.U/dL (0.2-1.0)
[2024-12-20 16:37] LABS: UA COLLECTION TYPE NON-SPECIFIED
[2024-12-20] MEDS ORDERED: CYCL-1 PO (19:29)
[2024-12-20] MEDS ORDERED: docusate sod 100mg capsule PO PRN (19:40)
[2024-12-20] MEDS: docusate sod 100mg capsule PO SCH (20:00)
[2024-12-20] MEDS: K and/or MAG REPLACEMENT MC SCH (20:00)
[2024-12-20] MEDS: insulin glargine (Lantus) pen - multi-dose SQ SCH (21:00)
[2024-12-20] MEDS: donepezil 5mg tablet PO SCH (21:07)
[2024-12-20] MEDS: cyclobenzaprine 10mg tablet PO SCH (21:08)
[2024-12-20] MEDS: clopidogrel 75mg tablet PO SCH (21:08)
[2024-12-20] MEDS: heparin, porcine 5000 units/ml vial SQ SCH (21:10)
[2024-12-20] MEDS: HYDROcodone/acetaminophen 5mg/325mg tablet PO PRN (21:13)
[2024-12-20 22:00] VITALS: BP 161/61; PULSE 58; RESP 16; TEMP 97.8; O2SAT 99
[2024-12-20] MEDS: QUEtiapine 25mg tablet PO SCH (23:09)
[2024-12-20] MEDS: hydrOXYzine 25 MG tablet PO SCH (23:09)
[2024-12-21] VITALS (14 sets, daily range): BP systolic 114–158; BP diastolic 54–66; PULSE 55–114; RESP 12–18; TEMP 97.4–98.3; O2SAT 96–100
[2024-12-21 06:50] LABS: BASOPHILS % (AUTO) 0.5 % (0-1); EOSINOPHILS # (AUTO) 0.1 X10'3 (0-0.9); EOSINOPHILS % (AUTO) 2.1 % (0-6); HEMATOCRIT 34.1 % (42.0-52.0); HEMOGLOBIN 11.8 g/dl (14.0-17.9); LYMPHOCYTES # (AUTO) 1.2 X10'3 (1.1-4.8); LYMPHOCYTES % (AUTO) 19.6 % (21-51); MEAN CORPUSCULAR HEMOGLOBIN 31.6 PG (27.0-31.0); MEAN CORPUSCULAR HGB CONC 34.6 g/dL (33.0-36.5); MEAN CORPUSCULAR VOLUME 91.4 FL (78-98); MONOCYTES # (AUTO) 0.4 X10'3 (0-0.9); MONOCYTES % (AUTO) 6.6 % (2-12); NEUTROPHILS # (AUTO) 4.4 X10'3 (1.8-7.7); NEUTROPHILS % (AUTO) 71.2 % (42-75); PLATELET COUNT 180 X10'3 (140-440); RED BLOOD COUNT 3.73 X10'6 (4.70-6.10); RED CELL DISTRIBUTION WIDTH 13.5 % (11.5-14.5); WHITE BLOOD COUNT 6.1 X10'3 (4.5-11.0)
[2024-12-21 07:24] LABS: ALANINE AMINOTRANSFERASE 21 U/L (12-78); ALBUMIN 3.4 G/DL (3.4-5.0); ALBUMIN/GLOBULIN RATIO 1.1 (1.1-1.5); ALKALINE PHOSPHATASE 73 IU/L (46-116); ANION GAP 4 (8-16); ASPARTATE AMINO TRANSFERASE 16 U/L (10-37); BILIRUBIN,TOTAL 0.4 MG/DL (0.1-1.0); BLOOD UREA NITROGEN 16 MG/DL (7-18); CALCIUM 8.8 MG/DL (8.5-10.1); CHLORIDE 103 MMOL/L (99-107); CHOL/HDL RATIO 2.5 (0.00-4.99); CHOLESTEROL 140 MG/DL (0-200); CREATININE 0.89 MG/DL (0.60-1.10); GLUCOSE 104 MG/DL (70-104); HDL CHOLESTEROL 56 MG/DL (35-60); LDL CHOLESTEROL 71 MG/DL (50-100); MAGNESIUM 1.4 MG/DL (1.5-2.4); POTASSIUM 4.4 MMOL/L (3.5-5.1); SODIUM 138 MMOL/L (135-145); TOTAL CARBON DIOXIDE 30.6 MMOL/L (24-32); TOTAL PROTEIN 6.4 G/DL (6.4-8.2); TRIGLYCERIDES 82 MG/DL (20-135); eCRCL 66 ML/MIN; eGFR 83 ML/MIN
[2024-12-21] MEDS: DESVENLAFAXINE SUCCINATE PO SCH (08:00)
[2024-12-21] MEDS: metoprolol succinate 25mg (24-HOUR) SR. Tablet PO SCH (08:00)
[2024-12-21] MEDS: fenofibrate 145mg tablet PO SCH (09:49)
[2024-12-21] MEDS: ferrous sulfate 325mg tablet PO SCH (09:49)
[2024-12-21] MEDS: regadenoson 0.4mg/5ml syringe IV PRN (10:52)
[2024-12-21] MEDS: isosorbide mononitrate 30mg tab.SR.24H PO SCH (11:55)
[2024-12-21] MEDS: magnesium Cl slow-release 64mg tablet PO PRN (12:07)
== END 2024-12-21 17:49 | disposition left against medical advice (07) | DRG 303 ==
LOC: ER 11:33 → ED HOLD 14:10 → PCU 3S 19:10
PROVIDERS: ADMIT Family Medicine; ATTEND Family Medicine
PROC: 4A02XM4 Measurement of Cardiac Total Activity, External Approach (ICD-10-PCS; principal; 2024-12-21)
PROC: 3E033HZ Introduction of Radioactive Substance into Peripheral Vein, Percutaneous Approach (ICD-10-PCS; 2024-12-21)
DX: I25.110 Atherosclerotic heart disease of native coronary artery with unstable angina pectoris (principal); E11.43 Type 2 diabetes mellitus with diabetic autonomic (poly)neuropathy; Z53.21 Procedure and treatment not carried out due to patient leaving prior to being seen by health care provider; F41.9 Anxiety disorder, unspecified; N40.0 Benign prostatic hyperplasia without lower urinary tract symptoms; G47.00 Insomnia, unspecified; E78.5 Hyperlipidemia, unspecified; K31.84 Gastroparesis; Z66 Do not resuscitate; D64.9 Anemia, unspecified; E11.51 Type 2 diabetes mellitus with diabetic peripheral angiopathy without gangrene; F03.90 Unspecified dementia, unspecified severity, without behavioral disturbance, psychotic disturbance, mood disturbance, and anxiety; J44.9 Chronic obstructive pulmonary disease, unspecified; Z95.5 Presence of coronary angioplasty implant and graft; Z88.5 Allergy status to narcotic agent; Z79.01 Long term (current) use of anticoagulants; Z79.899 Other long term (current) drug therapy
CPT/HCPCS: 36415; 71045; 78452; 80053; 80061; 81003; 82948; 83036; 83735; 83880; 84484; 85025; 87081; 93005; 93017; 93306; 99285; A9500; G0378; J1644; J1815; J2785; Q0177

== ENCOUNTER 2025-04-25 08:08 | Day surgery (SDC) | payer MEDICARE, MEDICAID ==
[~2025-04-25] VITALS: Ht 170.2 cm; Wt 71.6 kg
[2025-04-25] VITALS (10 sets, daily range): BP systolic 120–156; BP diastolic 50–83; PULSE 62–77; RESP 10–16; TEMP 98; O2SAT 96–100
[~2025-04-25 08:08] MED LIST changes: +CYCL-1 PO
[2025-04-25] MEDS ORDERED: LIDOcaine 1% (10mg/ml) 2ml vial ONE (08:37)
[2025-04-25] MEDS ORDERED: midazolam 1 mg/ML 2ml injection ONE (08:37)
[2025-04-25] MEDS ORDERED: verapamil 2.5 mg/ml inj IV ONE (08:37)
[2025-04-25] MEDS ORDERED: fentaNYL/PF 50MCG/1 ML 2ML syringe ONE (08:37)
[2025-04-25] MEDS ORDERED: iohexol 350 MG/ML 50ML vial IV ONE (08:37)
[2025-04-25] MEDS ORDERED: heparin 1,000unit/ml 10ml vial 10 ML ONE (08:38)
[2025-04-25] MEDS ORDERED: nitroGLYCERIN 500mcg/5mL D5W 5 ML IV ONE (08:39)
[2025-04-25] MEDS ORDERED: PANT40TA54 PO (09:02)
[2025-04-25] MEDS ORDERED: ALFU10TA47 PO (09:04)
[2025-04-25] MEDS ORDERED: DIVA125T31 PO (09:04)
[2025-04-25] MEDS ORDERED: ALBU8HFA INH (09:06)
[2025-04-25] MEDS ORDERED: VILA20TA2 PO (09:07)
[2025-04-25] MEDS ORDERED: NITR0.4T48 (09:08)
[2025-04-25] MEDS ORDERED: INSU100I31 SQ (09:09)
[2025-04-25] MEDS ORDERED: ROFL60FO TOP (09:11)
[2025-04-25] MEDS ORDERED: TRAZ-251 PO (09:12)
[2025-04-25] MEDS ORDERED: MELA5CAP PO (09:16)
[2025-04-25] MEDS ORDERED: ATOR-2 PO (09:16)
--- NOTE | 2025-04-25 09:34 | ELECTROCARDIOGRAPH REPORT ---
[facility] Test Date: 2025-04-25 Test Time: 09:32:57 Pat Name: BILLIE SUMNER Department: [facility] Patient ID: [facility]-[id number] Room: Gender: M Contract Administration Manager: : [id number] Requested By: BOAZ VEGAS Order Number: [id number] Reading MD: Measurements Intervals [place] Rate: 72 P: 75 CA: 156 QRS: 89 QRSD: 152 T: 61 QT: 441 QTc: 483 Interpretive Statements A-V dual-paced complexes w/ some inhibition No further analysis attempted due to paced rhythm Please click the below link to view image of tracing.
[2025-04-25 09:35] LABS: MEAN PLATELET VOLUME 7.5 FL (7.4-10.4); RED CELL DISTRIBUTION WIDTH 13.0 % (11.5-14.5)
[2025-04-25 09:38] LABS: CREATININE 1.58 MG/DL (0.60-1.10); TOTAL CARBON DIOXIDE 31.8 MMOL/L (24-32); eCRCL 37 ML/MIN; eGFR 43 ML/MIN
[2025-04-25 09:39] LABS: INR 1.1 INR
[2025-04-25] MEDS ORDERED: LIDOcaine 1% 30ml preserv. free vial ONE (09:40)
[2025-04-25] MEDS: sodium bicarbonate 1meq/ml syr 150 ML in dextrose 5%-water 1,000 ML IV ONE (11:42)
--- NOTE | 2025-04-25 12:14 | CARDIOLOGY REPORT ---
DATE OF SERVICE: 04/25/2025 DICTATING PHYSICIAN: BOAZ VEGAS DO CARDIAC CATHETERIZATION REPORT REFERRING PHYSICIAN: Boaz Vegas DO. CLINICAL HISTORY: This 74-year-old man has had a recent increase in his anginal symptoms, although it may be because of more than usual activity. There is a pertinent past history of inferior wall myocardial infarction in 1999. An occluded right coronary was successfully stented; however, subsequent cardiac catheterizations have demonstrated occlusion of these stents without ability to reopen them via antegrade approaches. His left coronary system has consistently been free of obstructive coronary disease and has not required any intervention. Because of his recent increase in symptoms, a decision was made to perform a left heart catheterization. PROCEDURES PERFORMED: * Left heart catheterization. * Left ventriculography. * Selective coronary arteriography. * 45 minutes of conscious sedation supervision. DESCRIPTION OF PROCEDURE: The patient was sedated with fentanyl and Versed. He was then prepared and draped in the usual manner. A 6-Djiboutian sheath was placed in the right radial artery using a micropuncture set. A cocktail of 200 mcg of nitroglycerin and 2.5 mg of verapamil was directly injected into the radial artery. The 5000 units of heparin were given in a peripheral IV. Left heart catheterization and left ventriculography were performed using a 6-Djiboutian pigtail catheter. Coronary arteriography was performed using a 6-Djiboutian Kimney catheter for the left coronary artery. In spite of using multiple catheters, the right coronary could not be engaged. These catheters were a #4 right Hernando catheter, a 0.75 AL catheter, and a no-torque right catheter. None of them would engage the coronary ostium and each appeared to bounce off of the area of the ostium, presumably because it is flush occluded out to the aortic sinus of Valsalva. The arterial sheath was removed and Vasc band was applied. RESULTS: HEMODYNAMIC DATA: The left ventricular end-diastolic pressure was 8 mmHg. There was no significant gradient across the aortic valve. FINDINGS: There is a long segment of stenting in the proximal and mid right coronary. There was also a stent in the distal LAD. The estimated ejection fraction was 45-50%. HEMODYNAMIC DATA: The left ventricular end diastolic pressure was 8 mmHg. There was no significant gradient across the aortic valve. LEFT VENTRICULOGRAM: The estimated ejection fraction was 45% to 50%. CORONARY ARTERIOGRAPHY: Coronary arteriograms were technically satisfactory. RIGHT CORONARY ARTERY: The right coronary was occluded as previously seen and multiple catheters would not engage the ostium, strongly suggesting that there was a flush occlusion at the origin of the vessel on the sinus of Valsalva. LEFT MAIN CORONARY ARTERY: The left main was a large unobstructed vessel bifurcating into left anterior descending and circumflex coronary arteries. LEFT ANTERIOR DESCENDING CORONARY ARTERY: The LAD was a [id number] transapical vessel. There was a large principal diagonal branch taking its origin from the mid LAD. A stent in the mid distal vessel was widely patent. Just beyond that stent, there was about a 60-70% narrowing, but it was in a portion of the distal LAD that appeared to be smaller than 2 mm in size. There was also about a 50% narrowing proximally within the large diagonal branch. CIRCUMFLEX CORONARY ARTERY: The circumflex was a large main stem vessel with 2 tiny obtuse marginal branches taking the origin very proximally. There was a large multi-segmented mid obtuse marginal branch and no significant posterolateral branches. There were no obstructive lesions in the circumflex coronary artery. There appeared to be a well-formed collateral from the distal LAD and the distal branches of the circumflex coronary. The collateral in the right coronary reached all the way up to the distal end of the previously placed stents in the proximal mid vessel. The right coronary was occluded as previously seen and multiple catheters would not engage the ostium, strongly suggesting that there is a flush occlusion at the origin of the vessel on the sinus Valsalva. CONCLUSIONS: * Obstructive coronary artery disease, principally manifested as a 100% proximal mid right coronary. There was also a 60-70% distal LAD in an area of vessel too small for stenting. * Stent in the mid distal LAD is widely patent. * There is now a well-formed collateral to the distal right coronary, which fills only mid/distal mainstem vessel. There are no distal RCA branches.. * Left ventricular function was only mildly below normal. The estimated LVEF was 45-50%. PLAN: Ongoing medical therapy. BOAZ VEGAS DO TID: [id number] RECEIPT: [id number] CLEO/STEVE MTDD
[2025-04-25] MEDS ORDERED: lactose-reduced food (Ensure Enlive) - 237ml bottle PO SCH (13:00)
== END 2025-04-25 15:00 | disposition home or self-care (01) ==
LOC: SSTAY O 08:08
PROVIDERS: ATTEND Internal Medicine Cardiovascular Disease
DX: R07.9 Chest pain, unspecified (principal); I25.10 Atherosclerotic heart disease of native coronary artery without angina pectoris; I49.1 Atrial premature depolarization; I45.10 Unspecified right bundle-branch block; I25.2 Old myocardial infarction; E11.9 Type 2 diabetes mellitus without complications; J44.9 Chronic obstructive pulmonary disease, unspecified; K21.9 Gastro-esophageal reflux disease without esophagitis; E78.2 Mixed hyperlipidemia; G47.30 Sleep apnea, unspecified; Z87.891 Personal history of nicotine dependence; Z79.02 Long term (current) use of antithrombotics/antiplatelets; Z79.84 Long term (current) use of oral hypoglycemic drugs; Z79.899 Other long term (current) drug therapy; Z90.49 Acquired absence of other specified parts of digestive tract; Z95.5 Presence of coronary angioplasty implant and graft; Z98.890 Other specified postprocedural states
CPT/HCPCS: 36415; 80048; 82948; 83735; 85025; 85610; 93005; 93458; 99152; 99153; A6258; A6402; C1751; C1894; J1644; J2003; J2250; J3010; J3490; J7030; J7070; Q0163; Q9967; Z7610

== ENCOUNTER 2025-05-16 14:56 | Emergency (ER) | payer MEDICARE, MEDICAID ==
[~2025-05-16] VITALS: Ht 170.2 cm; Wt 70.5 kg
[~2025-05-16 14:56] MED LIST changes: +ALBU8HFA INH; +ALFU10TA47 PO; +ATOR-2 PO; +DIVA125T31 PO; -HYDR-3927 PO; +INSU100I31 SQ; +MELA5CAP PO; +NITR0.4T48; +PANT40TA54 PO; -PRUC1TAB PO; -QUET25TA36 PO; +ROFL60FO TOP; +TRAZ-251 PO; +VILA20TA2 PO
[2025-05-16 15:39] LABS: MEAN PLATELET VOLUME 7.8 FL (7.4-10.4); RED CELL DISTRIBUTION WIDTH 13.4 % (11.5-14.5)
[2025-05-16 15:58] LABS: CREATININE 1.07 MG/DL (0.60-1.10); TOTAL CARBON DIOXIDE 29.6 MMOL/L (24-32); eCRCL 55 ML/MIN; eGFR 67 ML/MIN
--- NOTE | 2025-05-16 16:46 | Physician Documentation ---
History of Present Illness ~ Chief Complaint: Vomiting Stated Complaint: LOW BP Time Seen by MD: 15:40 OK to notify your PCP?: Yes Primary Medical Doctor: [facility] Source: patient, family Mode of Arrival: POV Exam Limitations: no limitations HPI 74 y/o male here due to concern about diarrhea over past few days and the fact that his diastolic bp was 52 and patient was weak. Patient was concerned that he may be having a exacerbation of gastroparesis. He reports he did have a TURP procedure last week. He was on pain medication and while he was on the pain medication he states his bowels were slowed down but since he has been taking the pain medication now he is having diarrhea. No blood in stool. He had a heart catheterization two weeks before his TURP procedure in states the arteries that were stented before are clogged up but they just treated it with a doubling his isosorbide mononitrate." Patient has no fever, chills, abdominal pain, blood in stool, nausea or vomiting. Medication Reconciliation Allergies: Coded Allergies: No Known Drug Allergies (Verified Allergy, Unknown, 05/16/25) peanut (Verified Allergy, Unknown, 05/16/25) Oxycodone Terephthalate (Verified Adverse Reaction, Unknown, N/V, 05/16/25) aspirin (Verified Adverse Reaction, Unknown, N/V, 05/16/25) oxycodone HCl (Verified Adverse Reaction, Unknown, N/V, 05/16/25) Scheduled Alfuzosin Hcl* (Uroxatral*), 1 TAB PO HS, (Reported) Atorvastatin Calcium (Atorvastatin Calcium), 1 TAB PO DAILY, (Reported) Clopidogrel Bisulfate (Plavix), 1 TAB PO DAILY, (Reported) Cyclobenzaprine* (Cyclobenzaprine*), 1 TAB PO TID, (Reported) Desvenlafaxine Succinate (Desvenlafaxine Succinate ER), 1 TAB PO DAILY, (Reported) Divalproex Sodium DR* (Depakote DR*), 1 TAB PO BID, (Reported) Donepezil HCl (Aricept), 1 TAB PO HS, (Reported) Fenofibrate (Fenofibrate), 1 TAB PO DAILY, (Reported) Ferrous Sulfate* (Ferrous Sulfate*), 1 TAB PO DAILY, (Reported) Insulin Glargine,Hum.rec.anlog (Dustin Yanezikpen U-100), 6 UNITS SQ HS, (Reported) Isosorbide Mononitrate (Isosorbide Mononitrate Er), 1 TAB PO DAILY, (Reported) Lorazepam (Ativan), 1 TAB PO BID, (Reported) Melatonin (Melatonin), 1 CAP PO HS, (Reported) Ondansetron 8mg ODT (Ondansetron Odt), 1 TAB PO TID, (Reported) Pantoprazole Sodium (Pantoprazole Sodium), 1 TAB PO DAILY, (Reported) Roflumilast (Zoryve), TOP DAILY, (Reported) Umeclidinium [place] (Incruse Ellipta), 1 PUFFS PO DAILY, (Reported) Vilazodone HCl (Vilazodone HCl), 1 TAB PO DAILY, (Reported) Scheduled PRN Docusate Sodium (Docusate Sodium), 1 CAP PO BID PRN for constipation, (Reported) albuterol inhaler (Pro-Air Inhaler), 2 PUFFS INH Q4HPRN PRN for wheezing, (Reported) Miscellaneous Medications Nitroglycerin (Nitroglycerin), (Reported) Trazodone HCl (Trazodone HCl), 1 TAB PO, (Reported) Past Medical History Past Medical History: Coronary Artery Disease, *GI/HEPATOBILIARY*, Hernia, Diabetes, Anxiety Past Surgical History: noncontributory Drug Use: none Lives In: Home Review of Systems All Other Systems at this time: Reviewed and Negative Physical Exam Vital Signs: Temperature: 98.1, Source: Temporal, Heart Rate: 64, Respiratory Rate: 16, BP: 123/60, Pulse Oximetry: 98, Weight: 70.500 Oxygen Flow Rate: 0 Physical Exam GENERAL: Alert, no acute distress. HEENT: NCAT, EOMI, PERRL, normal oropharynx, moist oral mucosa. NECK: Supple, trachea midline. CARDIAC: Regular rate and rhythm, no murmurs, rubs, or gallops. PV: Equal distal pulses. No lower extremity edema, cap refill less than 2 seconds. RESPIRATORY: Equal breath sounds, clear to auscultation bilaterally, no respiratory distress. GASTROINTESTINAL: Non distended, soft, nontender, No guarding or rebound. MUSCULOSKELETAL: Normal range of motion, nontender, no swelling. Normal gait. NEUROLOGICAL: Awake, alert, and oriented x 3. SKIN: Warm/dry, no pallor, no rash. PSYCH: Alert and appropriate. Affect congruent with mood. Speech is clear. Good eye contact. Progress Results/Orders Results/Orders Vital Signs 05/16/25 05/16/25 15:10 15:58 Temp 98.1 Pulse 64 Resp 17 16 B/P (MAP) 115/49 123/60 (81) Pulse Ox 100 98 O2 Flow Rate 0 Laboratory Tests Test 05/16/25 15:29 White Blood Count 3.4 L Red Blood Count 3.46 L Hemoglobin 10.9 L Hematocrit 31.1 L Mean Corpuscular Volume 89.9 Mean Corpuscular Hemoglobin 31.4 H Mean Corpuscular Hemoglobin Concent 34.9 Red Cell Distribution Width 13.4 Platelet Count 230 Mean Platelet Volume 7.8 Neutrophils (%) (Auto) 65.5 Lymphocytes (%) (Auto) 20.5 L Monocytes (%) (Auto) 9.5 Eosinophils (%) (Auto) 3.4 Basophils (%) (Auto) 1.1 H Neutrophils # (Auto) 2.2 Lymphocytes # (Auto) 0.7 L Monocytes # (Auto) 0.3 Eosinophils # (Auto) 0.1 Basophils # (Auto) 0.0 CBC Comment Sodium Level 134 L Potassium Level 4.2 Chloride Level 102 Carbon Dioxide Level 29.6 Anion Gap 2 L Blood Urea Nitrogen 6 L Creatinine 1.07 Estimated GFR/1.73 m2 67 BUN/Creatinine Ratio 5.6 L Glucose Level 121 H Calcium Level 8.9 Total Bilirubin 0.5 Aspartate Amino Transf (AST/SGOT) 21 Alanine Aminotransferase (ALT/SGPT) 15 Alkaline Phosphatase 51 Total Protein 6.6 Albumin 3.6 Globulin 3.0 Albumin/Globulin Ratio 1.2 Lipase 15 L Chemistry Comments Medical Decision Making Diff Dx N/V/D:Considerations: Include: Appendicitis, Bowel obstruction, Dehydration, DKA, Diarrhea - bacterial, Diarrhea - parasitic, Diarrhea - viral, Diverticulitis, Diverticulosis, Drug toxicity, Electrolyte imbalance, Food poisoning, Gastroenteritis, GE reflux, GI bleed, Hepatitis, Hernia, Hypovolemia, Hypotension, Inflammatory BD, Impaction, Malnutrition, Pancreatitis, PUD, Renal failure, Urinary obstruction, UTI, Urolithiasis Departure Time of Disposition: 16:42 Disposition: 01 HOME / SELF CARE / HOMELESS Impression: Primary Impression: Diarrhea Qualified Codes: R19.7 - Diarrhea, unspecified Additional Impression: Anemia Qualified Codes: D64.9 - Anemia, unspecified Additional Instructions: Your diarrhea may be a result of previously being more constipated due to being on opioids postop from your TURP procedure. I recommend you follow a BRAT diet. There was no evidence with your labs that you were dehydrated and your blood pressure is normal. Your blood pressure is probably a little bit lower than w hat you were used to due to doubling of the isosorbide mononitrate which will bring your blood pressure down slightly and this could be the cause of you feeling more fatigued. I want you to follow up with your primary care provider to make sure that your hemoglobin of 10.9 is normal for you and that it is followed. If blood in stool or any other concerning symptoms return to ER. Referrals: NO PRIMARY CARE PROVIDER (PCP) Education Educated: Patient, Family Educated regarding: diagnosis, treatment, need for follow up Signature Scribe Signature: vilma Attestation: SOM Bernal May 16, 2025 16:46
[2025-05-16 16:52] VITALS: BP 119/69; PULSE 86; RESP 16; TEMP 98.4; O2SAT 98
== END 2025-05-16 16:55 | disposition home or self-care (01) ==
LOC: ER 14:56
DX: R19.7 Diarrhea, unspecified (principal); D64.9 Anemia, unspecified; E11.9 Type 2 diabetes mellitus without complications; I25.10 Atherosclerotic heart disease of native coronary artery without angina pectoris; Z88.5 Allergy status to narcotic agent; Z88.6 Allergy status to analgesic agent
CPT/HCPCS: 36415; 80053; 83690; 85025; 99283

== ENCOUNTER 2025-07-28 14:33 | Emergency (ER) | payer MEDICARE, MEDICAID ==
[~2025-07-28] VITALS: Ht 170.2 cm; Wt 68.6 kg
[2025-07-28 14:46] VITALS: BP 120/53; PULSE 57; RESP 16; TEMP 98; O2SAT 99
[2025-07-28 15:27] LABS: MEAN PLATELET VOLUME 8.4 FL (7.4-10.4); RED CELL DISTRIBUTION WIDTH 14.0 % (11.5-14.5)
[2025-07-28 15:41] LABS: CREATININE 1.23 MG/DL (0.60-1.10); TOTAL CARBON DIOXIDE 29.9 MMOL/L (24-32); eCRCL 48 ML/MIN; eGFR 57 ML/MIN
[2025-07-28 16:08] LABS: EOSINOPHILS % (MANUAL) 5.0 % (0-6); LYMPHOCYTES % (MANUAL) 26.0 % (21-51); MONOCYTES % (MANUAL) 6.0 % (2-12); NEUTROPHILS % (MANUAL) 63.0 % (42-75); PLATELET ESTIMATE NORMAL
--- NOTE | 2025-07-28 19:00 | Physician Documentation ---
History of Present Illness ~ Chief Complaint: Weakness Stated Complaint: GASTROPARESIS OK to notify your PCP?: Yes Primary Medical Doctor: REMA PEREZ This is a 74-year-old male with a history of gastroparesis who presents with one-week of generalized weakness and poor oral intake, patient reports for the past month that any time he eats he has diarrhea. Patient reports no other acute symptoms or concerns. Medication Reconciliation Allergies: Coded Allergies: No Known Drug Allergies (Verified Allergy, Unknown, 05/16/25) peanut (Verified Allergy, Unknown, 05/16/25) Oxycodone Terephthalate (Verified Adverse Reaction, Unknown, N/V, 05/16/25) aspirin (Verified Adverse Reaction, Unknown, N/V, 05/16/25) oxycodone HCl (Verified Adverse Reaction, Unknown, N/V, 05/16/25) Scheduled Alfuzosin Hcl* (Uroxatral*), 1 TAB PO HS, (Reported) Atorvastatin Calcium (Atorvastatin Calcium), 1 TAB PO DAILY, (Reported) Clopidogrel Bisulfate (Plavix), 1 TAB PO DAILY, (Reported) Cyclobenzaprine* (Cyclobenzaprine*), 1 TAB PO TID, (Reported) Desvenlafaxine Succinate (Desvenlafaxine Succinate ER), 1 TAB PO DAILY, (Reported) Divalproex Sodium DR* (Depakote DR*), 1 TAB PO BID, (Reported) Donepezil HCl (Aricept), 1 TAB PO HS, (Reported) Fenofibrate (Fenofibrate), 1 TAB PO DAILY, (Reported) Ferrous Sulfate* (Ferrous Sulfate*), 1 TAB PO DAILY, (Reported) Insulin Glargine,Hum.rec.anlog (Basaglar Kwikpen U-100), 6 UNITS SQ HS, (Reported) Isosorbide Mononitrate (Isosorbide Mononitrate Er), 1 TAB PO DAILY, (Reported) Lorazepam (Ativan), 1 TAB PO BID, (Reported) Melatonin (Melatonin), 1 CAP PO HS, (Reported) Ondansetron 8mg ODT (Ondansetron Odt), 1 TAB PO TID, (Reported) Pantoprazole Sodium (Pantoprazole Sodium), 1 TAB PO DAILY, (Reported) Roflumilast (Zoryve), TOP DAILY, (Reported) Umeclidinium [place] (Incruse Ellipta), 1 PUFFS PO DAILY, (Reported) Vilazodone HCl (Vilazodone HCl), 1 TAB PO DAILY, (Reported) Scheduled PRN Docusate Sodium (Docusate Sodium), 1 CAP PO BID PRN for constipation, (Reported) albuterol inhaler (Pro-Air Inhaler), 2 PUFFS INH Q4HPRN PRN for wheezing, (Reported) Miscellaneous Medications Nitroglycerin (Nitroglycerin), (Reported) Trazodone HCl (Trazodone HCl), 1 TAB PO, (Reported) Past Medical History Past Medical History: Coronary Artery Disease, *GI/HEPATOBILIARY*, Hernia, Diabetes, Anxiety Past Surgical History: noncontributory Drug Use: none Lives In: Home Review of Systems ROS As stated above in the HPI, otherwise all systems are reviewed and negative. Physical Exam Vital Signs: Temperature: 98.0, Source: Oral, Heart Rate: 57, Respiratory Rate: 16, BP: 120/53, Pulse Oximetry: 99, Weight: 68.640 Oxygen Flow Rate: 0 Physical Exam VITALS: Reviewed and as above. GENERAL: Alert, nontoxic appearing, no apparent distress. RESPIRATORY: No increased work of breathing, no respiratory distress, speaking in full clear sentences Progress Results/Orders Results/Orders Vital Signs 07/28/25 14:46 Temp 98.0 Pulse 57 Resp 16 B/P (MAP) 120/53 Pulse Ox 99 O2 Flow Rate 0 Laboratory Tests Test 07/28/25 15:07 White Blood Count 2.9 L Red Blood Count 3.32 L Hemoglobin 10.5 L Hematocrit 30.5 L Mean Corpuscular Volume 91.7 Mean Corpuscular Hemoglobin 31.6 H Mean Corpuscular Hemoglobin Concent 34.5 Red Cell Distribution Width 14.0 Platelet Count 178 Mean Platelet Volume 8.4 Neutrophils (%) (Auto) 52.4 Lymphocytes (%) (Auto) 31.8 Monocytes (%) (Auto) 9.7 Eosinophils (%) (Auto) 5.2 Basophils (%) (Auto) 0.9 Neutrophils # (Auto) 1.5 L Lymphocytes # (Auto) 0.9 L Monocytes # (Auto) 0.3 Eosinophils # (Auto) 0.2 Basophils # (Auto) 0.0 CBC Comment Differential Total Cells Counted 100 Neutrophils % (Manual) 63.0 Lymphocytes % (Manual) 26.0 Monocytes % (Manual) 6.0 Eosinophils % (Manual) 5.0 Platelet Estimate Normal Red Blood Cell Morphology Normal Basophilic Stippling Sodium Level 140 Potassium Level 4.2 Chloride Level 103 Carbon Dioxide Level 29.9 Anion Gap 7 L Blood Urea Nitrogen 10 Creatinine 1.23 H Estimated GFR/1.73 m2 57 BUN/Creatinine Ratio 8.1 L Glucose Level 93 Calcium Level 8.5 Total Bilirubin 0.5 Aspartate Amino Transf (AST/SGOT) 16 Alanine Aminotransferase (ALT/SGPT) 11 L Alkaline Phosphatase 42 L Total Protein 6.2 L Albumin 3.2 L Globulin 3.0 Albumin/Globulin Ratio 1.1 Lipase 12 L Chemistry Comments Medical Decision Making Additional information obtaine: N/A Findings MSE performed in triage and patient returned to ED lobby by nursing staff to await available ED room Differential Dx:Considerations: Include: anemia, dehydration, dysrhythmia, electrolyte imbalance, hypoglycemia, hypotension, hypovolemia, myocardial infarction Departure Disposition: LEFT AWOL/ELOPED Impression: Primary Impression: Weakness Referrals: NO PRIMARY CARE PROVIDER (PCP) Signature Scribe Signature: No scribe Attestation: The note accurately reflects work and decisions made by me.DEMETRA Kwok 07/30/25 00:11 EZRA DIAMOND Jul 28, 2025 19:00
== END 2025-07-28 19:06 | disposition left against medical advice (07) ==
LOC: ER 14:34
DX: R53.1 Weakness (principal); E11.43 Type 2 diabetes mellitus with diabetic autonomic (poly)neuropathy; I25.10 Atherosclerotic heart disease of native coronary artery without angina pectoris; Z91.010 Allergy to peanuts; Z88.5 Allergy status to narcotic agent; Z88.6 Allergy status to analgesic agent; Z79.899 Other long term (current) drug therapy
CPT/HCPCS: 36415; 80053; 83690; 85007; 85025; 99283